=== PATIENT | female | born 1995 | race Caucasian/White ===

== ENCOUNTER 2023-12-09 19:04 | Emergency (ER) | payer MEDICAID ==
[~2023-12-09] VITALS: Ht 160 cm; Wt 152.0 kg
[2023-12-09 19:31] VITALS: BP 129/82; PULSE 81; RESP 18; TEMP 98.3
[2023-12-09] MEDS: KETOROLAC TROMETHAMINE 30 MG/ML VIAL IM ONE (19:42)
[2023-12-09] MEDS: LIDOCAINE 5% TRANSDERMAL PATCH TD ONE (19:43)
[2023-12-09] MEDS: TraMADol HCL 50 MG TABLET PO ONE (19:43)
[2023-12-09 20:17] LABS: APPEARANCE,URINE HAZY (CLEAR); BILIRUBIN,URINE NEGATIVE (NEGATIVE); COLOR,URINE YELLOW (YELLOW); GLUCOSE, URINE (UA) NEGATIVE (NEGATIVE); KETONES,URINE NEGATIVE (NEGATIVE); LEUKOCYTE ESTERASE ,URINE MODERATE (NEGATIVE); NITRATE,URINE NEGATIVE (NEGATIVE); OCCULT BLOOD,URINE SMALL (NEGATIVE); PROTEIN,URINE TRACE mg/dL (NEGATIVE); SPECIFIC GRAVITIY, URINE 1.038 (1.003-1.030)
[2023-12-09 20:20] LABS: HCG,QUAL URINE NEGATIVE (NEGATIVE)
[2023-12-09 20:24] LABS: BACTERIA,URINE Few /HPF (None Seen); SQUAMOUS EPITHELIAL CELL,UR Many /LPF (None Seen)
[2023-12-09] MEDS ORDERED: CYCL-448 PO (21:31)
[2023-12-09] MEDS ORDERED: CEPH-558 PO (21:31)
== END 2023-12-09 21:57 | disposition home or self-care (01) ==
LOC: EMS 19:04
DX: N39.0 Urinary tract infection, site not specified (principal); M54.50 Low back pain, unspecified
CPT/HCPCS: 99284; 81001; 84703; 87086; 87186; 72100; 96372; J1885

== ENCOUNTER 2024-09-12 09:22 | Emergency (ER) | payer MEDICAID ==
[~2024-09-12] VITALS: Ht 175.3 cm; Wt 89.0 kg
[~2024-09-12 09:22] MED LIST: CEPH-558 PO; CYCL-448 PO; PRED-554 PO
[2024-09-12 09:28] VITALS: TEMP 98.8
[2024-09-12] MEDS: LIDOCAINE 5% TRANSDERMAL PATCH TD ONE (10:12)
[2024-09-12] MEDS: METHOCARBAMOL 500 MG TABLET PO ONE (10:12)
[2024-09-12] MEDS: KETOROLAC TROMETHAMINE 60 MG/2 ML VIAL IM ONE (10:12)
[2024-09-12] MEDS ORDERED: METH-659 PO (10:55)
[2024-09-12] MEDS ORDERED: IBUP-1492 PO (10:55)
[2024-09-12] MEDS ORDERED: LIDO700A15 TP (10:56)
[2024-09-12] MEDS: OxyCODONE HCL/ACETAMINOPHEN 5-325 MG TABLET PO ONE (11:34)
[2024-09-12] MEDS: LORazepam 1 MG TABLET PO ONE (11:53)
[2024-09-12] MEDS: MORPHINE SULFATE 2 MG/ML SYRINGE IM ONE (13:31)
[2024-09-12 14:00] VITALS: BP 116/69; PULSE 74; RESP 15; O2SAT 97
[2024-09-12] MEDS ORDERED: PERCT PO (14:07)
== END 2024-09-12 14:38 | disposition home or self-care (01) ==
LOC: EMS 09:22
DX: S39.012A Strain of muscle, fascia and tendon of lower back, initial encounter (principal); Z90.49 Acquired absence of other specified parts of digestive tract; X58.XXXA Exposure to other specified factors, initial encounter; Y93.89 Activity, other specified; Y92.89 Other specified places as the place of occurrence of the external cause; Y99.8 Other external cause status
CPT/HCPCS: 99285; 72131; 84703; 96372; J1885; J2270